=== PATIENT | male | born 1985 | race Caucasian/White ===

== ENCOUNTER 2016-08-12 13:26 | Emergency (ER) | payer SELFPAY ==
[~2016-08-12] VITALS: Ht 182.9 cm; Wt 68.0 kg
[2016-08-12 13:27] VITALS: BP 147/88; PULSE 76; RESP 20; TEMP 98.5; O2SAT 100
--- NOTE | 2016-08-12 14:38 | PD ---
Physical Exam Date Seen by Provider: August 12, 2016 Time Seen by Provider: 14:31 Narrative 30 y/o male presents with generalized aching. Patient has decreased appetite, nausea, and generalized Fatigue. Pain is 8/10 at worst. patient is a smoker, no ETOH. Occasional diarrhea. symptoms present for a year. Denies Suicidal Ideation or Homicidal Ideation. No chronic medical problems. Data Data Last Documented VS Vital Signs Date Time Temp Pulse Resp B/P Pulse Ox O2 Delivery O2 Flow Rate FiO2 08/12/16 13:27 98.5 76 20 147/88 100 Room Air [facility] Medical Record Reviewed: Yes Supervised Visit with RALPH: Yes Condition: Stable Ayan Rey August 12, 2016 14:38
== END 2016-08-12 21:30 | disposition left against medical advice (07) ==
LOC: NED 13:26
DX: R11.0 Nausea (principal); Z72.0 Tobacco use
CPT/HCPCS: 99281